=== PATIENT | male | born 1970 | race Caucasian/White ===

== ENCOUNTER 2019-05-10 18:25 | Emergency (ER) | payer BC ==
[~2019-05-10] VITALS: Ht 182.9 cm; Wt 77.3 kg
[2019-05-10 18:54] LABS: BASOPHILS # (AUTO) 0.1 X10'3 (0-0.2); BASOPHILS % (AUTO) 0.9 % (0-1); EOSINOPHILS # (AUTO) 0.1 X10'3 (0-0.9); EOSINOPHILS % (AUTO) 1.9 % (0-6); LYMPHOCYTES # (AUTO) 2.5 X10'3 (1.1-4.8); LYMPHOCYTES % (AUTO) 39.1 % (21-51); MEAN PLATELET VOLUME 7.8 FL (7.4-10.4); MONOCYTES # (AUTO) 0.4 X10'3 (0-0.9); MONOCYTES % (AUTO) 6.8 % (2-12); NEUTROPHILS # (AUTO) 3.3 X10'3 (1.8-7.7); NEUTROPHILS % (AUTO) 51.3 % (42-75); PLATELET COUNT 230 X10'3 (140-440); RED BLOOD COUNT 5.05 X10'6 (4.70-6.10); WHITE BLOOD COUNT 6.5 X10'3 (4.5-11.0)
[2019-05-10 19:04] LABS: TOTAL CARBON DIOXIDE 29.7 MMOL/L (24-32)
[2019-05-10 19:25] LABS: HEMATOCRIT 45.4 % (42.0-52.0); HEMOGLOBIN 15.8 g/dl (14.0-17.9); MEAN CORPUSCULAR HEMOGLOBIN 30.8 PG (27.0-31.0); MEAN CORPUSCULAR HGB CONC 34.9 g/dL (33.0-36.5); MEAN CORPUSCULAR VOLUME 88.4 FL (78-98)
[2019-05-10 19:32] LABS: ALANINE AMINOTRANSFERASE 54 U/L (12-78); ALBUMIN 4.4 G/DL (3.4-5.0); ALBUMIN/GLOBULIN RATIO 1.3 (1.1-1.5); ALKALINE PHOSPHATASE 80 IU/L (46-116); ANION GAP 7 (8-16); ASPARTATE AMINO TRANSFERASE 27 U/L (10-37); BILIRUBIN,TOTAL 0.3 MG/DL (0.1-1.0); BLOOD UREA NITROGEN 13 MG/DL (7-18); BUN/CREATININE RATIO 11.9 (5.4-32.0); CALCIUM 9.5 MG/DL (8.5-10.1); CHLORIDE 103 MMOL/L (99-107); CREATININE 1.09 MG/DL (0.60-1.10); GLUCOSE 109 MG/DL (70-104); POTASSIUM 3.8 MMOL/L (3.5-5.1); SODIUM 140 MMOL/L (135-145); TOTAL PROTEIN 7.7 G/DL (6.4-8.2); eGFR 72 ML/MIN
[2019-05-10] MEDS ORDERED: aspirin 81mg tab.chew PO ONE (19:40)
[2019-05-10] MEDS ORDERED: normal saline 1000ML IV soln IVB ONE (19:40)
[2019-05-10] MEDS ORDERED: famotidine/PF 10 mg/ml inj IV ONE (19:40)
[2019-05-10] MEDS: nitroGLYCERIN 0.4mg SUBLingual tab SL PRN ×3 (19:47→20:02)
--- NOTE | 2019-05-10 19:56 | NUR ---
CHEST PAIN IMPROVED AFTER FIRST NTG SL, GIVEN SECOND DOSE
--- NOTE | 2019-05-10 20:00 | NUR ---
NO APPRECIABLE CHANGE WITH SECOND NTG DOSE
--- NOTE | 2019-05-10 20:02 | NUR ---
3RD NTG DOSE GIVEN, BP 132/89
[2019-05-10 20:53] LABS: D-DIMER < 0.19 MG/L FEU (0-0.50)
[2019-05-10] MEDS ORDERED: PANT-47 PO (21:01)
[2019-05-10 21:11] VITALS: BP 119/74
== END 2019-05-10 21:13 | disposition home or self-care (01) ==
LOC: ER 18:25
DX: R07.89 Other chest pain (principal); E78.00 Pure hypercholesterolemia, unspecified; Z79.899 Other long term (current) drug therapy
CPT/HCPCS: 36415; 71045; 80053; 84484; 85025; 85379; 93005; 96374; 99284; J3490; J7030